=== PATIENT | female | born 2000 | race American Indian/Alaskan Native ===

== ENCOUNTER 2021-09-27 03:03 | Emergency (ER) | payer OTHER ==
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
[2021-09-27 07:53] VITALS: BP 128/81
== END 2021-09-27 07:53 | disposition home or self-care (01) ==
LOC: ED 03:03
DX: T22.111A Burn of first degree of right forearm, initial encounter (principal); V89.2XXA Person injured in unspecified motor-vehicle accident, traffic, initial encounter; G50.1 Atypical facial pain; Y93.89 Activity, other specified; Y92.89 Other specified places as the place of occurrence of the external cause; Y99.8 Other external cause status
CPT/HCPCS: 99282